=== PATIENT | female | born 1990 | race Caucasian/White ===

== ENCOUNTER → 2017-06-20 | Outpatient (CLI) | payer OTHER ==
[2015-10-22 07:03] VITALS: BP 114/72
[2017-06-20 12:43] LABS: BASOPHILS # (AUTO) 0.1 X10^3/uL (0.0-0.1); BASOPHILS % (AUTO) 1.1 % (0.2-1.0); EOSINOPHILS # (AUTO) 0.1 x10^3/uL (0.0-0.2); EOSINOPHILS % (AUTO) 1.2 % (0.9-2.9); HEMATOCRIT 33.5 % (36.0-47.0); HEMOGLOBIN 11.9 g/dL (12.0-16.0); LYMPHOCYTES # (AUTO) 2.2 X10^3/uL (1.3-2.9); LYMPHOCYTES % (AUTO) 25.2 % (21.0-51.0); MEAN CORPUSCULAR HEMOGLOBIN 33.1 pg (27.0-34.0); MEAN CORPUSCULAR HGB CONC 35.5 g/dL (33.0-35.0); MEAN CORPUSCULAR VOLUME 93.3 fL (80.0-100.0); MEAN PLATELET VOLUME 9.3 fL (7.4-11.0); MONOCYTES # (AUTO) 0.5 x10^3/uL (0.3-0.8); MONOCYTES % (AUTO) 5.2 % (0.0-13.0); NEUTROPHILS % (AUTO) 67.3 % (42.0-75.0); PLATELET COUNT 155 X10^3/uL (150.0-450.0); RED BLOOD COUNT 3.59 X10^6/uL (3.5-5.4); RED CELL DISTRIBUTION WIDTH 13.8 % (11.6-16.5); WHITE BLOOD COUNT 8.9 X10^3/uL (3.6-10.0)
[2017-06-20 12:47] LABS: BILIRUBIN,URINE NEGATIVE (NEGATIVE); BLOOD/HEMOGLOBIN,URINE 1+ (NEGATIVE); GLUCOSE, URINE NEGATIVE (NEGATIVE); KETONES,URINE NEGATIVE (NEGATIVE); LEUKOCYTE ESTERASE ,URINE 3+ (NEGATIVE); NITRITES,URINE NEGATIVE (NEGATIVE); PROTEIN,URINE NEGATIVE (NEGATIVE); UROBILINOGEN,URINE NORMAL (NORMAL)
[2017-06-20 12:52] LABS: APPEARANCE,URINE CLEAR (CLEAR); BACTERIA,URINE NEGATIVE /HPF (NEGATIVE); COLOR,URINE YELLOW (YELLOW); MUCUS,URINE MODERATE /HPF (NEGATIVE); RBC,URINE 0-5 /HPF (NEGATIVE); SQUAMOUS EPITHELIAL CELL,UR MANY /HPF (NEGATIVE)
[2017-06-20 12:53] LABS: BLOOD UREA NITROGEN 10 mg/dL (7-18); CALCIUM 8.9 mg/dL (8.5-10.1); CARBON DIOXIDE 24.9 mmol/L (21-32); CHLORIDE 104 mmol/L (98-107); SODIUM 137 mmol/L (136-145); eGFR BLACK RACES > 60 (>60); eGFR NON BLACK RACES > 60 (>60)
== END ==
LOC: LAB 12:15
PROVIDERS: ATTEND Specialist
DX: Z01.818 Encounter for other preprocedural examination (principal); Z34.83 Encounter for supervision of other normal pregnancy, third trimester
CPT/HCPCS: 36415; 80048; 80307; 81001; 85025; 86592; 86850; 86900; 86901; G0434

== ENCOUNTER 2017-06-22 06:52 | Inpatient (IN) | payer OTHER ==
[~2017-06-22 06:52] MED LIST: AMPICILLIN VIAL 2 GM ONE; D5 1/2 NS 1000 ML 1,000 ML IV ONE; D5 1/2 NS 1L W PITOCIN 20 UNITS/L 20 UNITS/1,000 ML BAG IV ONE; D5LR 1L W PITOCIN 10 UNITS/L 10 UNITS/1,000 ML BAG IV ONE; LR 1000 ML IV 1,000 ML IV ONE; NS 100 ML IV 100 ML IV ONE; PITOCIN ONE
[2017-06-22] MEDS: D5 1/2 NS 1000 ML 1,000 ML IV SCH ×2 (07:00→16:30)
[2017-06-22] MEDS ORDERED: MORPHINE SULFATE INJ 2 MG INJ IVP PRN (07:14)
[2017-06-22] MEDS ORDERED: D5LR 1L W PITOCIN 10 UNITS/L 10 UNITS/1,000 ML BAG IV PRN (07:14)
[2017-06-22] MEDS ORDERED: REGLAN INJ 10 MG VIAL IVP PRN ×3 (07:14→18:22)
[2017-06-22] MEDS ORDERED: AMPICILLIN VIAL 2 GM 2 GM in NS 100 ML IV + SPIKE MINIBAG* 100 ML IV SCH (07:14)
[2017-06-22] MEDS ORDERED: NUBAIN INJ 200 MG VIAL MULTIDOSE IVP PRN (07:14)
[2017-06-22] MEDS ORDERED: PITOCIN IVP ONE (07:14)
[2017-06-22] MEDS ORDERED: PHENERGAN INJ 25 MG IV PRN ×4 (07:14→18:22)
--- NOTE | 2017-06-22 07:24 | DR.OB ---
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 O-Afebrile,VSS MSK=059 with good LTV, +accel, no decel. CTX=none CVX=2cm/50%/-1/VTX AROM with clear fluid. IUPC and FSE placed. A-IUP at 38 6/7 weeks for induction IUGR +GBS Multiparity desiring permanent sterilization P-Begin pitocin induction Anticipate with PP BTL
[2017-06-22] MEDS ORDERED: NS 100 ML IV 100 ML IV ONE ×2 (10:23→16:04)
[2017-06-22] MEDS ORDERED: AMPICILLIN VIAL 1 GM ONE (10:24)
[2017-06-22] MEDS ORDERED: NAROPIN EPIDURAL 0.2% + FENTANYL 90MCG 60 ML EPI ONE (10:52)
[2017-06-22] MEDS ORDERED: FENTANYL INJ 100 mcg ONE (10:52)
[2017-06-22] MEDS ORDERED: FENTANYL INJ 100 mcg EPI ONE (10:54)
[2017-06-22] MEDS ORDERED: LR 1000 ML IV 1,000 ML IV ONE ×2 (10:54→16:13)
[2017-06-22] MEDS ORDERED: NAROPIN EPIDURAL 0.2% 60 ML with FENTANYL INJ 100 mcg 90 MCG IVP SCH ×2 (11:00)
[2017-06-22] MEDS: AMPICILLIN VIAL 1 GM 1 GM in NS 50 ML IV + SPIKE MINIBAG* 50 ML IV SCH ×3 (11:00→12:18)
--- NOTE | 2017-06-22 11:49 | DR.OB ---
OB Quick Note - Assessment/Plan Assessment/Plan: Progress Note 06/22/17 at 11:45am Pitocin=14mu/min. Ampicillin S-No complaint. s/p epidural. O-Afebrile,VSS JUK=186 with good LTV, +accel, no decel. CTX= q 1 1/2 to 2 min., about 45-55mmHg CVX=3cm/75%/0 A-IUP at 38 6/7 weeks for induction IUGR +GBS Multiparity P-Cont. pitocin induction/ABX in labor Anticipate
[2017-06-22] MEDS ORDERED: MOTRIN TAB 800 MG PO PRN ×2 (15:04→18:22)
[2017-06-22] MEDS: XYLOCAINE 2 % (PLAIN) ONE ×2 (15:50→16:15)
[2017-06-22] MEDS ORDERED: D5 1/2 NS 1000 ML 1,000 ML with PITOCIN 20 UNITS IV SCH ×2 (16:00)
[2017-06-22] MEDS ORDERED: ANCEF VIAL 1 GM ONE (16:04)
[2017-06-22] MEDS ORDERED: NS IRRIGATION 1000 ML 1,000 ML IR ONE (16:20)
[2017-06-22] MEDS ORDERED: ZOFRAN INJ 4 MG VIAL IVP PRN (17:02)
[2017-06-22] MEDS ORDERED: BENADRYL INJ 50 MG VIAL IVP PRN (17:02)
[2017-06-22] MEDS ORDERED: DILAUDID INJ IVP PRN (17:02)
[2017-06-22] MEDS ORDERED: PHENERGAN INJ 25 MG IVP PRN (17:02)
--- NOTE | 2017-06-22 17:10 | DR.OB ---
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 Head delivered over intact perineum. Nuchal cord x 1 reduced. Nose and mouth bulb suctioned. Body delivered over intact perineum. Cord clamped x 2 and cut. Infant handed to attendant. Cord sent for gases. Placenta delivered spontaneously / intact / 3 vessel cord. No CVX / vaginal / perineal tears. Viable female infant, VTX/OA, wt=5'11" and 9/ 9, stable to NBN. Mother stable to RR. QIT=[id number].
[2017-06-22] MEDS ORDERED: COLACE CAP 100 MG PO SCH (18:22)
[2017-06-22] MEDS ORDERED: MYLICON TAB 80 MG CHEW PO PRN (18:22)
[2017-06-22] MEDS ORDERED: MILK OF MAGNESIA PO PRN (18:22)
[2017-06-22] MEDS ORDERED: AMBIEN PO PRN (18:22)
[2017-06-22] MEDS: PERCOCET TAB 5/325 MG PO PRN (21:26)
[2017-06-23] MEDS ORDERED: D5 1/2 NS 1000 ML 1,000 ML with PITOCIN 20 UNITS IV SCH ×2
[2017-06-23] MEDS: PERCOCET TAB 5/325 MG PO PRN (03:40)
[2017-06-23] MEDS: D5 1/2 NS 1000 ML 1,000 ML with PITOCIN 20 UNITS IV SCH ×4 (05:03→14:52)
[2017-06-23 05:17] LABS: HEMATOCRIT 29.8 % (36.0-47.0); HEMOGLOBIN 10.5 g/dL (12.0-16.0)
[2017-06-23] MEDS: MOTRIN TAB 800 MG PO PRN ×2 (08:17→16:03)
[2017-06-23] MEDS: PRENATAL PLUS PO SCH ×2 (08:17→10:51)
[2017-06-23] MEDS ORDERED: BACTROBAN OINT TOP SCH (14:00)
[2017-06-23] MEDS ORDERED: DIPRIVAN VIAL ONE (14:22)
[2017-06-23 16:05] VITALS: BP 117/70
== END 2017-06-23 18:35 | disposition home or self-care (01) | DRG 767 ==
LOC: LD 06:52 → MED/SURG 17:24
PROVIDERS: ADMIT Specialist; ATTEND Specialist
PROC: 0UB70ZZ Excision of Bilateral Fallopian Tubes, Open Approach (ICD-10-PCS; 2017-06-22)
PROC: 10907ZC Drainage of Amniotic Fluid, Therapeutic from Products of Conception, Via Natural or Artificial Opening (ICD-10-PCS; 2017-06-22)
PROC: 3E033VJ Introduction of Other Hormone into Peripheral Vein, Percutaneous Approach (ICD-10-PCS; 2017-06-22)
PROC: 00HU33Z Insertion of Infusion Device into Spinal Canal, Percutaneous Approach (ICD-10-PCS; 2017-06-22)
PROC: 10E0XZZ Delivery of Products of Conception, External Approach (ICD-10-PCS; principal; 2017-06-22 16:00)
DX: O36.5930 Maternal care for other known or suspected poor fetal growth, third trimester, not applicable or unspecified (principal); Z37.0 Single live birth; O98.311 Other infections with a predominantly sexual mode of transmission complicating pregnancy, first trimester; O99.824 Streptococcus B carrier state complicating childbirth; B95.1 Streptococcus, group B, as the cause of diseases classified elsewhere; Z30.2 Encounter for sterilization; Z3A.38 38 weeks gestation of pregnancy
CPT/HCPCS: 36415; 80048; 80307; 81001; 85014; 85018; 85025; 86592; 86850; 86900; 86901; A4216; A4222; S0197; G0434; J0290; J0690; J2001; J2590; J3010; J3490; J7042; J7120